=== PATIENT | male | born 1935 | race Caucasian/White ===

== ENCOUNTER 2016-03-15 18:00 | Outpatient (CLI) | payer MEDICARE ==
[~2016-03-15 18:00] MED LIST: ALBU90OI INH; ALBU90OI6 INH; ALLO300; ALLO300 PO; ALLOPURINOL 300 MG PO; AMLO5; ASPI325; ASPI325 PO; ASPI81EC PO; ATOR20; ATOR40TA; AZIT250 PO; Aspirin EC325 MG PO; BENAML10/5; BUME2 PO; CALC.25 PO; CARV3.125 PO; CARV6.25 PO; CEFU500 PO; CEPH500 PO; CHOL10002 PO; CICL.77TC TOP; CLON2; CLON2 PO; CLONAZEPAM PO; CLOP75 PO; CLOT1TL; CODGUAEL PO; Calcitriol0.25 MCG PO; Cephalexin500 MG PO; DIAZ5 PO; DIPH50; ERYT250 PO; FAMC500 PO; FAMO20; FEBU40TA PO; FOLBEE; FOLI1 PO; FOLI400 PO; FURO20; FURO40; FURO40 PO; FUROSIMIDE PO; GABA300 PO; GLIP5; GLIP5 PO; GUAI600T33 PO; GUAIFENESIN-CODE5 ML PO; HUMALOG MI SC; HUMALOG MI SQ; HYDACE5; HYDACE5 PO; HYDPAM50 PO; HYDROCODON-ACE1 EAC4 PO; Humalog100 UNIT/1; Hydrocodone-Ap1 EA23 PO; Hydromet Syrup473 ML PO; INSLIS75I SC; INSUASPI SC; ISOMON20 PO; ISOMON30 PO; ISOSORBIDE MONONITRA PO; Isosorbide Mono60 MG PO; LASIX; LEVEMIR FL100 UNIT/1 SC; LEVFLO250 PO; LIPITOR PO; LISI10 PO; LISI5 PO; LOSA25 PO; LOSA50 PO; LOTREL; METANX CAPSULE1 EACH PO; METO100; METO100ER; METO100ER PO; METO2.5; METO2.5 PO; METO50ER; METR500 PO; METTREX2.5 PO; MIR; MIRAPEX ER1.5 MG; MIRAPEX PO; MULVITB PO; Micro-K10 MEQ; Mirapex1.5 MG PO; NEBI10 PO; NITR.2TP TOP; NITR.4SL; NITR.4SL SL; NITRSPRAY SL; OXYACE5T PO; PANT40; PIOG15; POTA10T PO; POTA20PAC PO; POTA8; POTCHL20ER PO; PRAM.125 PO; PRAM.5; PRAM.5 PO; PRAMIPEXOLE 1.5 MG PO; PRED10 PO; PRED20 PO; RANI150 PO; RANO500T PO; ROSU10TA; ROSU10TA PO; ROSU5; RXCODGUASY PO; RXOXYACE PO; RXSULTRIDS PO; SAXA2.5T PO; SULTRIDS PO; TELM80; TORS10; TORSE20 PO; TORSEMIDE; TRADJENTA5 MG PO; Tamiflu75 MG PO; VALS80; VITAMIN D-32000 UNIT PO; Vitamin D2000 UNIT PO; omeprazole 20 mg cap
[2016-09-13] MEDS ORDERED: Novolog Fl100 UNIT/1 SC (10:52)
[2017-02-10] MEDS ORDERED: ZOLP12.5 PO (01:24)
[2017-02-10] MEDS ORDERED: CLOP75 PO (01:24)
[2017-02-10] MEDS ORDERED: ALLO300 PO (01:25)
[2017-02-10] MEDS ORDERED: PANT20 PO (01:26)
[2017-02-10] MEDS ORDERED: HYDR-86 PO (01:27)
[2017-02-10] MEDS ORDERED: ISOMON20 PO (01:28)
[2017-02-10] MEDS ORDERED: ABAT250V (01:31)
[2017-02-10] MEDS ORDERED: NITR.4SL SL (01:31)
[2017-02-11] MEDS ORDERED: FEBU40TA PO (10:10)
[2017-02-11] MEDS ORDERED: Ferrous Sulfat325 MG PO (10:49)
[2017-02-11] MEDS ORDERED: B-121000 MC2 PO (10:50)
[2017-03-17 10:18] LABS: Campylobacter Sp Not Detected (NOT DETECT); Plesiomonas Shigelloides Not Detected (NOT DETECT); Salmonella Sp Not Detected (NOT DETECT); Vibrio Sp Not Detected (NOT DETECT); Yersinia Enterocolitica Not Detected (NOT DETECT)
[2017-03-17 10:19] LABS: Adenovirus F 40/41 Not Detected (NOT DETECT); Astrovirus Not Detected (NOT DETECT); Cryptosporidium Not Detected (NOT DETECT); Cyclospora Cayetanensis Not Detected (NOT DETECT); E. Coli O157 Not Detected (NOT DETECT); Entamoeba Histolytica Not Detected (NOT DETECT); Enteroaggregative E. coli-EAEC Not Detected (NOT DETECT); Enteropathogenic E. coli-EPEC Not Detected (NOT DETECT); Enterotoxigenic E. coli-ETEC Not Detected (NOT DETECT); Giardia Lamblia Not Detected (NOT DETECT); Norovirus GI/GII Not Detected (NOT DETECT); Rotavirus A Not Detected (NOT DETECT); Sapovirus Not Detected (NOT DETECT); Shiga Toxin-prod E. coli-STEC Not Detected (NOT DETECT); Shigella/Enteroin E. coli-EIEC Not Detected (NOT DETECT); Vibrio Cholerae Not Detected (NOT DETECT)
[2017-08-02] MEDS ORDERED: TOUJEO SOL300 UNIT/1 SC (15:09)
[2017-08-02] MEDS ORDERED: DOC250 PO (15:20)
[2017-09-14] MEDS ORDERED: Vancocin HCl125 MG PO (03:14)
[2017-09-14] MEDS ORDERED: Roxicodone5 MG PO (03:31)
[2017-09-14] MEDS ORDERED: Zofran Odt4 MG PO (03:32)
[2017-10-01] MEDS ORDERED: ACET325 PO (17:31)
[2017-10-01] MEDS ORDERED: Novolog Fl100 UNIT/1 SC (17:32)
[2017-10-01] MEDS ORDERED: ROPI.25 PO (17:33)
[2017-10-06] MEDS ORDERED: SACC250C PO (10:39)
[2017-10-06] MEDS ORDERED: VANC250 PO (10:40)
[2017-10-31] MEDS ORDERED: LEVFLO250 PO (08:53)
[2017-10-31] MEDS ORDERED: Norco 7.5-3251 EACH PO (09:44)
[2017-10-31] MEDS ORDERED: SINEMET 25-1001 EACH PO (09:45)
[2017-12-19] MEDS ORDERED: ATOR80 PO (10:56)
[2017-12-19] MEDS ORDERED: POLY500 PO (10:57)
[2017-12-19] MEDS ORDERED: SINEMET 25-1001 EACH PO (10:57)
[2017-12-19] MEDS ORDERED: INSULANPEN SC (10:58)
[2017-12-19] MEDS ORDERED: LORA.5 PO (10:58)
[2017-12-19] MEDS ORDERED: LEVOFLOXAC250 MG/50 IV (11:01)
[2017-12-19] MEDS ORDERED: SPIR25 PO (11:04)
[2017-12-19] MEDS ORDERED: ISO GENTAM IV (11:15)
[2018-01-16] MEDS ORDERED: MIDO5 PO (13:15)
[2018-01-16] MEDS ORDERED: ZINC15 PO (13:15)
[2018-01-17] MEDS ORDERED: ALLO100 PO (10:26)
[2018-01-17] MEDS ORDERED: ROSU10TA PO (10:27)
[2018-01-17] MEDS ORDERED: PREG75 PO (10:28)
[2018-01-17] MEDS ORDERED: HYDPAM50 PO (10:28)
[2018-01-17] MEDS ORDERED: CALCA400CH PO (10:29)
[2018-01-17] MEDS ORDERED: Novolog Fl100 UNIT/1 SC (10:30)
[2018-01-17] MEDS ORDERED: ROPI.25 PO (10:30)
[2018-01-18] MEDS ORDERED: Ferrous Sulfat325 M2 PO (11:27)
== END 2017-03-15 ==
LOC: LAB EV 18:00
PROVIDERS: Physician Assistant
DX: K52.9 Noninfective gastroenteritis and colitis, unspecified (principal)
CPT/HCPCS: 87507

== ENCOUNTER 2017-07-29 10:21 | Inpatient (IN) | payer MEDICARE ==
[~2017-07-29] VITALS: Ht 172.7 cm; Wt 115.5 kg
[~2017-07-29 10:21] MED LIST changes: +ABAT250V; +B-121000 MC2 PO; +CARV25 PO; -CARV3.125 PO; -FOLI400 PO; +Ferrous Sulfat325 MG PO; +HYDR-86 PO; +Novolog Fl100 UNIT/1 SC; +PANT20 PO; +ZOLP12.5 PO
[2017-07-29 11:37] LABS: BASOPHILS ABSOLUTE AUTO 0.02 K/mm3 (0.00-0.23); BASOPHILS PERCENT AUTO 1 % (0-2); EOSINOPHILS ABSOLUTE AUTO 0.11 K/mm3 (0.00-0.68); EOSINOPHILS PERCENT AUTO 3 % (0-6); Hematocrit 31.6 % (37.0-53.0); Hemoglobin 10.4 g/dL (13.5-17.5); IMMATURE GRAN ABSOLUTE AUTO 0.04 K/mm3 (0.00-0.10); IMMATURE GRAN PERCENT AUTO 1 % (0-1); LYMPHOCYTES ABSOLUTE AUTO 0.37 K/mm3 (0.84-5.20); LYMPHOCYTES PERCENT AUTO 9 % (21-46); MONOCYTES ABSOLUTE AUTO 0.82 K/mm3 (0.16-1.47); MONOCYTES PERCENT AUTO 21 % (4-13); Mean Corpuscular HGB 29.4 pg (26.0-34.0); Mean Corpuscular HGB Conc 32.9 g/dL (31.5-36.5); Mean Corpuscular Volume 89 fL (80-100); Mean Platelet Volume 12.7 fL (9.1-12.4); NEUTROPHILS ABSOLUTE AUTO 2.57 K/mm3 (1.96-9.15); NEUTROPHILS PERCENT AUTO 65 % (41-73); Platelet Count 72 K/mm3 (150-400); RDW Coefficient Variation 15.6 % (11.7-14.2); RDW Standard Deviation 50.1 fL (35.1-46.3); Red Blood Cell Count 3.54 M/mm3 (4.30-5.90); White Blood Cell Count 3.93 K/mm3 (4.00-11.30)
[2017-07-29 11:47] LABS: Albumin, Blood 3.1 g/dL (3.4-5.0); Albumin/Globulin Ratio 0.8 (0.8-1.8); Bilirubin, Total 0.8 mg/dL (0.1-1.0); Bun/Creatinine Ratio 19.9 (12.0-20.0); Calcium, Blood 8.9 mg/dL (8.5-10.1); Creatinine, Blood 4.42 mg/dL (0.60-1.20); Globulin, Blood 4.1 g/dL (2.2-4.0); Potassium, Blood 3.4 mmol/L (3.5-5.5); Total Protein, Blood 7.2 g/dL (6.4-8.2); Troponin I 0.177 ng/mL (0.000-0.040)
[2017-07-29 14:19] LABS: International Normalized Ratio 1.32; Prothrombin Time Results 13.8 Sec (9.7-11.5)
[2017-07-29] MEDS ORDERED: Novolog Fl100 UNIT/1 INJ (18:46)
[2017-07-29] MEDS ORDERED: CYAN500 PO (18:49)
[2017-07-29] MEDS ORDERED: ASPI325 PO (18:54)
[2017-07-29] MEDS ORDERED: TOUJEO SOL300 UNIT/1 (18:55)
[2017-07-29] MEDS ORDERED: ALLO100 PO (18:57)
[2017-07-29 21:26] LABS: Source, Urine Catheter
[2017-07-29 21:35] LABS: Appearance, Urine Clear (Clear); Bilirubin, Urine Neg (Neg); Blood, Urine 5+ (Neg); Color, Urine Yellow (P-Yellow); Glucose Qualitative, Urine Neg (Neg); Ketones, Urine Neg (Neg); Leukocyte Esterase, Urine Neg (Neg); Nitrite, Urine Neg (Neg); Protein, Urine 2+ (Neg); Specific Gravity, Urine 1.005 (1.003-1.022); Urobilinogen, Urine NORM (Normal)
[2017-07-29 21:44] LABS: Bacteria Rare /hpf; Red Blood Cells, Urine 50-100 /hpf (0-2); Squamous Epithelial Cells Rare /hpf (Few); White Blood Cells, Urine 0-2 /hpf (0-5)
[2017-07-30 05:16] LABS: BASOPHILS ABSOLUTE AUTO 0.02 K/mm3 (0.00-0.23); BASOPHILS PERCENT AUTO 1 % (0-2); EOSINOPHILS PERCENT AUTO 3 % (0-6); Hematocrit 31.4 % (37.0-53.0); Hemoglobin 10.1 g/dL (13.5-17.5); IMMATURE GRAN ABSOLUTE AUTO 0.02 K/mm3 (0.00-0.10); IMMATURE GRAN PERCENT AUTO 1 % (0-1); LYMPHOCYTES ABSOLUTE AUTO 0.29 K/mm3 (0.84-5.20); LYMPHOCYTES PERCENT AUTO 9 % (21-46); MONOCYTES ABSOLUTE AUTO 0.67 K/mm3 (0.16-1.47); MONOCYTES PERCENT AUTO 20 % (4-13); Mean Corpuscular HGB 28.9 pg (26.0-34.0); Mean Corpuscular HGB Conc 32.2 g/dL (31.5-36.5); Mean Corpuscular Volume 90 fL (80-100); Mean Platelet Volume 11.8 fL (9.1-12.4); NEUTROPHILS ABSOLUTE AUTO 2.18 K/mm3 (1.96-9.15); NEUTROPHILS PERCENT AUTO 67 % (41-73); Platelet Count 76 K/mm3 (150-400); RDW Coefficient Variation 15.9 % (11.7-14.2); RDW Standard Deviation 51.5 fL (35.1-46.3); Red Blood Cell Count 3.49 M/mm3 (4.30-5.90); White Blood Cell Count 3.28 K/mm3 (4.00-11.30)
[2017-07-30 05:38] LABS: Bun/Creatinine Ratio 18.4 (12.0-20.0); Creatinine, Blood 4.4 mg/dL (0.60-1.20); Potassium, Blood 3.1 mmol/L (3.5-5.5)
[2017-07-30 05:39] LABS: Troponin I 0.222 ng/mL (0.000-0.040)
[2017-07-30 17:28] LABS: Albumin, Blood 2.7 g/dL (3.4-5.0); Anion Gap 10 mmol/L (6-16); Blood Urea Nitrogen 85 mg/dL (8-24); Bun/Creatinine Ratio 20.6 (12.0-20.0); CO2, Blood 28 mmol/L (21-32); Calcium, Blood 8.5 mg/dL (8.5-10.1); Chloride, Blood 102 mmol/L (98-108); Creatinine, Blood 4.13 mg/dL (0.60-1.20); Glomerular Filtration Rate 15 (60-); Glucose, Blood 173 mg/dL (70-99); Magnesium, Blood 2.1 mg/dL (1.6-2.4); Phosphorus, Blood 4.4 mg/dL (2.5-4.9); Potassium, Blood 3.2 mmol/L (3.5-5.5); Sodium, Blood 140 mmol/L (136-145)
[2017-07-31 05:28] LABS: BASOPHILS ABSOLUTE AUTO 0.02 K/mm3 (0.00-0.23); BASOPHILS PERCENT AUTO 1 % (0-2); EOSINOPHILS ABSOLUTE AUTO 0.12 K/mm3 (0.00-0.68); EOSINOPHILS PERCENT AUTO 3 % (0-6); Hematocrit 30.3 % (37.0-53.0); Hemoglobin 9.7 g/dL (13.5-17.5); IMMATURE GRAN ABSOLUTE AUTO 0.03 K/mm3 (0.00-0.10); IMMATURE GRAN PERCENT AUTO 1 % (0-1); LYMPHOCYTES ABSOLUTE AUTO 0.47 K/mm3 (0.84-5.20); LYMPHOCYTES PERCENT AUTO 12 % (21-46); MONOCYTES ABSOLUTE AUTO 0.99 K/mm3 (0.16-1.47); MONOCYTES PERCENT AUTO 26 % (4-13); Mean Corpuscular HGB 29.1 pg (26.0-34.0); Mean Corpuscular Volume 91 fL (80-100); Mean Platelet Volume 12.8 fL (9.1-12.4); NEUTROPHILS ABSOLUTE AUTO 2.19 K/mm3 (1.96-9.15); NEUTROPHILS PERCENT AUTO 57 % (41-73); Platelet Count 69 K/mm3 (150-400); RDW Coefficient Variation 15.9 % (11.7-14.2); RDW Standard Deviation 51.5 fL (35.1-46.3); Red Blood Cell Count 3.33 M/mm3 (4.30-5.90); White Blood Cell Count 3.82 K/mm3 (4.00-11.30)
[2017-07-31 05:49] LABS: Albumin, Blood 2.7 g/dL (3.4-5.0); Anion Gap 10 mmol/L (6-16); Blood Urea Nitrogen 84 mg/dL (8-24); Bun/Creatinine Ratio 20.6 (12.0-20.0); CO2, Blood 30 mmol/L (21-32); Calcium, Blood 8.9 mg/dL (8.5-10.1); Chloride, Blood 103 mmol/L (98-108); Creatinine, Blood 4.08 mg/dL (0.60-1.20); Glomerular Filtration Rate 15 (60-); Glucose, Blood 55 mg/dL (70-99); Magnesium, Blood 2.2 mg/dL (1.6-2.4); Phosphorus, Blood 4.2 mg/dL (2.5-4.9); Potassium, Blood 3.2 mmol/L (3.5-5.5); Sodium, Blood 143 mmol/L (136-145)
[2017-08-01 05:40] LABS: Albumin, Blood 2.7 g/dL (3.4-5.0); Anion Gap 10 mmol/L (6-16); Blood Urea Nitrogen 75 mg/dL (8-24); CO2, Blood 29 mmol/L (21-32); Calcium, Blood 9.1 mg/dL (8.5-10.1); Chloride, Blood 101 mmol/L (98-108); Creatinine, Blood 3.75 mg/dL (0.60-1.20); Glomerular Filtration Rate 17 (60-); Glucose, Blood 182 mg/dL (70-99); Phosphorus, Blood 4.1 mg/dL (2.5-4.9); Potassium, Blood 4.2 mmol/L (3.5-5.5); Sodium, Blood 140 mmol/L (136-145)
[2017-08-02 05:34] LABS: Albumin, Blood 2.7 g/dL (3.4-5.0); Anion Gap 8 mmol/L (6-16); Blood Urea Nitrogen 72 mg/dL (8-24); Bun/Creatinine Ratio 18.7 (12.0-20.0); CO2, Blood 29 mmol/L (21-32); Calcium, Blood 9.4 mg/dL (8.5-10.1); Chloride, Blood 102 mmol/L (98-108); Creatinine, Blood 3.86 mg/dL (0.60-1.20); Glomerular Filtration Rate 16 (60-); Glucose, Blood 145 mg/dL (70-99); Phosphorus, Blood 3.4 mg/dL (2.5-4.9); Potassium, Blood 4.8 mmol/L (3.5-5.5); Sodium, Blood 139 mmol/L (136-145)
[2017-08-02] MEDS ORDERED: FURO80 (14:41)
[2017-08-02] MEDS ORDERED: INSDET100 SC (15:09)
[2017-08-02] MEDS ORDERED: PRAM.5 (15:13)
[2017-08-02] MEDS ORDERED: CLOP75 PO (15:15)
[2017-08-02] MEDS ORDERED: DOCU100 (15:20)
[2017-08-02] MEDS ORDERED: SPIR25 PO (15:21)
== END 2017-08-02 16:34 | disposition home health service (06) | DRG 291 ==
LOC: ER 10:21 → MEDS 14:44 → ENPENDDIS 08-02 14:00 → MEDS 08-02 16:34
PROVIDERS: Family Medicine; Internal Medicine; Nurse Practitioner Family; Pharmacist
DX: I13.0 Hypertensive heart and chronic kidney disease with heart failure and stage 1 through stage 4 chronic kidney disease, or unspecified chronic kidney disease (principal); I50.43 Acute on chronic combined systolic (congestive) and diastolic (congestive) heart failure; N18.4 Chronic kidney disease, stage 4 (severe); E11.22 Type 2 diabetes mellitus with diabetic chronic kidney disease; E11.65 Type 2 diabetes mellitus with hyperglycemia; Z79.4 Long term (current) use of insulin; I25.5 Ischemic cardiomyopathy; I25.10 Atherosclerotic heart disease of native coronary artery without angina pectoris; E78.5 Hyperlipidemia, unspecified; E11.40 Type 2 diabetes mellitus with diabetic neuropathy, unspecified; N40.0 Benign prostatic hyperplasia without lower urinary tract symptoms; G25.81 Restless legs syndrome; G47.33 Obstructive sleep apnea (adult) (pediatric); E87.6 Hypokalemia; R60.1 Generalized edema
CPT/HCPCS: 36415; 51702; 71046; 80048; 80053; 80069; 81001; 82947; 83735; 83880; 84443; 84484; 85025; 85610; 85730; 93005; 93010; 93306; 94660; 94762; 96365; 96366; 96375; 97116; 97161; 97165; 97530; 99285; C9113; G8978; G8979; G8987; G8988; J1644; J1650; J1815; J1940; J2916

== ENCOUNTER 2017-08-23 12:34 | Emergency (ER) | payer MEDICARE ==
[~2017-08-23] VITALS: Ht 172.7 cm; Wt 112.0 kg
[~2017-08-23 12:34] MED LIST changes: +ALLO100 PO; +CYAN500 PO; +DOC250 PO; +FOLI400 PO; +FURO80; +Novolog Fl100 UNIT/1 INJ; +SPIR25 PO; +TOUJEO SOL300 UNIT/1; +TOUJEO SOL300 UNIT/1 SC
[2017-08-23 13:22] LABS: BASOPHILS ABSOLUTE AUTO 0.02 K/mm3 (0.00-0.23); BASOPHILS PERCENT AUTO 1 % (0-2); EOSINOPHILS ABSOLUTE AUTO 0.07 K/mm3 (0.00-0.68); EOSINOPHILS PERCENT AUTO 2 % (0-6); Hematocrit 29.1 % (37.0-53.0); Hemoglobin 9.6 g/dL (13.5-17.5); IMMATURE GRAN ABSOLUTE AUTO 0.02 K/mm3 (0.00-0.10); IMMATURE GRAN PERCENT AUTO 1 % (0-1); LYMPHOCYTES ABSOLUTE AUTO 0.36 K/mm3 (0.84-5.20); LYMPHOCYTES PERCENT AUTO 12 % (21-46); MONOCYTES ABSOLUTE AUTO 0.59 K/mm3 (0.16-1.47); MONOCYTES PERCENT AUTO 20 % (4-13); Mean Corpuscular HGB 30.4 pg (26.0-34.0); Mean Corpuscular Volume 92 fL (80-100); Mean Platelet Volume 12.8 fL (9.1-12.4); NEUTROPHILS ABSOLUTE AUTO 1.86 K/mm3 (1.96-9.15); NEUTROPHILS PERCENT AUTO 64 % (41-73); Platelet Count 58 K/mm3 (150-400); RDW Coefficient Variation 17.4 % (11.7-14.2); RDW Standard Deviation 58.4 fL (35.1-46.3); Red Blood Cell Count 3.16 M/mm3 (4.30-5.90); White Blood Cell Count 2.92 K/mm3 (4.00-11.30)
[2017-08-23 13:34] LABS: Albumin, Blood 3.1 g/dL (3.4-5.0); Albumin/Globulin Ratio 0.8 (0.8-1.8); Bun/Creatinine Ratio 17.8 (12.0-20.0); Calcium, Blood 8.2 mg/dL (8.5-10.1); Creatinine, Blood 3.32 mg/dL (0.60-1.20); Magnesium, Blood 2.8 mg/dL (1.6-2.4); Potassium, Blood 4.8 mmol/L (3.5-5.5); Total Protein, Blood 7.1 g/dL (6.4-8.2); Troponin I 0.1 ng/mL (0.000-0.040)
[2017-08-23] MEDS ORDERED: Novolog Fl100 UNIT/1 SC (13:34)
[2017-08-23] MEDS ORDERED: BUME2 PO (13:36)
[2017-08-23] MEDS ORDERED: LORA.5 PO (13:39)
[2017-08-23] MEDS ORDERED: METO2.5 PO (14:23)
[2017-08-23] MEDS ORDERED: GABA300 PO (14:24)
[2017-08-23] MEDS ORDERED: TRAZ50 PO (14:24)
[2017-08-23] MEDS ORDERED: ZOLP5 PO (14:25)
[2017-08-23] MEDS ORDERED: NEUPRO1 EACH TOP (14:35)
[2017-08-23] MEDS ORDERED: Neurontin 300300 MG PO (16:13)
[2017-08-23] MEDS ORDERED: ROPI.25 PO (16:13)
== END 2017-08-23 16:50 | disposition home or self-care (01) ==
LOC: ER 12:34
PROVIDERS: Emergency Medicine
DX: G25.81 Restless legs syndrome (principal); R79.89 Other specified abnormal findings of blood chemistry; E11.9 Type 2 diabetes mellitus without complications; I10 Essential (primary) hypertension; Z88.6 Allergy status to analgesic agent; Z88.0 Allergy status to penicillin; Z79.899 Other long term (current) drug therapy; Z79.4 Long term (current) use of insulin; Z79.82 Long term (current) use of aspirin; Z87.891 Personal history of nicotine dependence
CPT/HCPCS: 71046; 80053; 83735; 83880; 84484; 85025; 93005; 93010; 96374; 99284; J2060

== ENCOUNTER 2017-08-27 17:58 | Emergency (ER) | payer MEDICARE ==
[~2017-08-27] VITALS: Ht 172.7 cm; Wt 121.6 kg
[~2017-08-27 17:58] MED LIST changes: +LORA.5 PO; +NEUPRO1 EACH TOP; +Neurontin 300300 MG PO; +ROPI.25 PO; +TRAZ50 PO; +ZOLP5 PO
== END 2017-08-27 20:13 | disposition home or self-care (01) ==
LOC: ER 17:58
DX: I87.2 Venous insufficiency (chronic) (peripheral) (principal); E11.9 Type 2 diabetes mellitus without complications; I10 Essential (primary) hypertension; Z88.6 Allergy status to analgesic agent; Z88.0 Allergy status to penicillin; Z79.4 Long term (current) use of insulin; Z79.899 Other long term (current) drug therapy; Z79.82 Long term (current) use of aspirin; Z87.891 Personal history of nicotine dependence
CPT/HCPCS: 93971; 99284

== ENCOUNTER → 2017-10-26 | Outpatient (CLI) | payer MEDICARE ==
[~2017-10-26] MED LIST changes: +ACET325 PO; +Norco 7.5-3251 EACH PO; +Roxicodone5 MG PO; +SACC250C PO; +SINEMET 25-1001 EACH PO; +VANC250 PO; +Vancocin HCl125 MG PO; +Zofran Odt4 MG PO
[2017-10-26 12:08] LABS: BASOPHILS ABSOLUTE AUTO 0.01 K/mm3 (0.00-0.23); BASOPHILS PERCENT AUTO 1 % (0-2); EOSINOPHILS ABSOLUTE AUTO 0.08 K/mm3 (0.00-0.68); EOSINOPHILS PERCENT AUTO 4 % (0-6); Hematocrit 26.9 % (37.0-53.0); Hemoglobin 8.8 g/dL (13.5-17.5); IMMATURE GRAN ABSOLUTE AUTO 0.01 K/mm3 (0.00-0.10); IMMATURE GRAN PERCENT AUTO 1 % (0-1); LYMPHOCYTES ABSOLUTE AUTO 0.44 K/mm3 (0.84-5.20); LYMPHOCYTES PERCENT AUTO 22 % (21-46); MONOCYTES ABSOLUTE AUTO 0.63 K/mm3 (0.16-1.47); MONOCYTES PERCENT AUTO 31 % (4-13); Mean Corpuscular HGB 31.8 pg (26.0-34.0); Mean Corpuscular HGB Conc 32.7 g/dL (31.5-36.5); Mean Corpuscular Volume 97 fL (80-100); Mean Platelet Volume 12.4 fL (9.1-12.4); NEUTROPHILS ABSOLUTE AUTO 0.85 K/mm3 (1.96-9.15); NEUTROPHILS PERCENT AUTO 42 % (41-73); RDW Coefficient Variation 16.2 % (11.7-14.2); RDW Standard Deviation 57.7 fL (35.1-46.3); Red Blood Cell Count 2.77 M/mm3 (4.30-5.90); White Blood Cell Count 2.02 K/mm3 (4.00-11.30)
[2017-10-26 12:25] LABS: Platelet Count 41 K/mm3 (150-400)
[2017-10-26 13:20] LABS: Anion Gap 6 mmol/L (6-16); Blood Urea Nitrogen 13 mg/dL (8-24); CO2, Blood 36 mmol/L (21-32); Calcium, Blood 5.8 mg/dL (8.5-10.1); Chloride, Blood 100 mmol/L (98-108); Creatinine, Blood 0.93 mg/dL (0.60-1.20); Glomerular Filtration Rate >60 (60-); Glucose, Blood 135 mg/dL (70-99); Potassium, Blood 3.2 mmol/L (3.5-5.5); Sodium, Blood 142 mmol/L (136-145)
== END ==
LOC: LAB 11:59 → LAB SHORT 11:59
PROVIDERS: Internal Medicine
DX: N18.6 End stage renal disease (principal)
CPT/HCPCS: 80048; 85025

== ENCOUNTER 2017-10-27 08:49 | Inpatient (IN) | payer MEDICARE ==
[~2017-10-27] VITALS: Ht 172.7 cm; Wt 90.8 kg
[~2017-10-27 08:49] MED LIST changes: -Norco 7.5-3251 EACH PO; -SINEMET 25-1001 EACH PO
[2017-10-27 10:25] LABS: BASOPHILS ABSOLUTE AUTO 0.02 K/mm3 (0.00-0.23); BASOPHILS PERCENT AUTO 1 % (0-2); EOSINOPHILS ABSOLUTE AUTO 0.14 K/mm3 (0.00-0.68); EOSINOPHILS PERCENT AUTO 6 % (0-6); Hematocrit 30.4 % (37.0-53.0); Hemoglobin 9.9 g/dL (13.5-17.5); IMMATURE GRAN ABSOLUTE AUTO 0.02 K/mm3 (0.00-0.10); IMMATURE GRAN PERCENT AUTO 1 % (0-1); LYMPHOCYTES ABSOLUTE AUTO 0.48 K/mm3 (0.84-5.20); LYMPHOCYTES PERCENT AUTO 20 % (21-46); MONOCYTES PERCENT AUTO 29 % (4-13); Mean Corpuscular HGB 31.7 pg (26.0-34.0); Mean Corpuscular HGB Conc 32.6 g/dL (31.5-36.5); Mean Corpuscular Volume 97 fL (80-100); Mean Platelet Volume 11.9 fL (9.1-12.4); NEUTROPHILS ABSOLUTE AUTO 1.05 K/mm3 (1.96-9.15); NEUTROPHILS PERCENT AUTO 44 % (41-73); RDW Coefficient Variation 16.2 % (11.7-14.2); Red Blood Cell Count 3.12 M/mm3 (4.30-5.90); White Blood Cell Count 2.41 K/mm3 (4.00-11.30)
[2017-10-27 10:31] LABS: Platelet Count 45 K/mm3 (150-400)
[2017-10-27 10:53] LABS: Albumin, Blood 2.8 g/dL (3.4-5.0); Albumin/Globulin Ratio 0.7 (0.8-1.8); Bun/Creatinine Ratio 12.2 (12.0-20.0); Creatinine, Blood 3.29 mg/dL (0.60-1.20); Magnesium, Blood 3.2 mg/dL (1.6-2.4); Potassium, Blood 4.1 mmol/L (3.5-5.5); Total Protein, Blood 6.8 g/dL (6.4-8.2); Troponin I 0.029 ng/mL (0.000-0.040)
[2017-10-27 10:54] LABS: Calcium, Blood 8.5 mg/dL (8.5-10.1)
[2017-10-27 10:57] LABS: Thyroid Stimulating Hormone 1.56 uIU/mL (0.360-4.800)
[2017-10-27 17:26] LABS: Percent Saturation 22.1 % (20.0-50.0)
[2017-10-27 17:44] LABS: Free Thyroxine 1.28 ng/dL (0.70-1.60); Prolactin 24.7 ng/mL (2.5-17.4)
[2017-10-28 03:52] LABS: BASOPHILS ABSOLUTE AUTO 0.01 K/mm3 (0.00-0.23); BASOPHILS PERCENT AUTO 0 % (0-2); EOSINOPHILS ABSOLUTE AUTO 0.17 K/mm3 (0.00-0.68); EOSINOPHILS PERCENT AUTO 6 % (0-6); Hematocrit 31.4 % (37.0-53.0); Hemoglobin 10.1 g/dL (13.5-17.5); IMMATURE GRAN ABSOLUTE AUTO 0.01 K/mm3 (0.00-0.10); IMMATURE GRAN PERCENT AUTO 0 % (0-1); LYMPHOCYTES ABSOLUTE AUTO 0.45 K/mm3 (0.84-5.20); LYMPHOCYTES PERCENT AUTO 17 % (21-46); MONOCYTES ABSOLUTE AUTO 0.73 K/mm3 (0.16-1.47); MONOCYTES PERCENT AUTO 27 % (4-13); Mean Corpuscular HGB 31.9 pg (26.0-34.0); Mean Corpuscular HGB Conc 32.2 g/dL (31.5-36.5); Mean Corpuscular Volume 99 fL (80-100); NEUTROPHILS ABSOLUTE AUTO 1.33 K/mm3 (1.96-9.15); NEUTROPHILS PERCENT AUTO 49 % (41-73); RDW Coefficient Variation 16.2 % (11.7-14.2); RDW Standard Deviation 58.4 fL (35.1-46.3); Red Blood Cell Count 3.17 M/mm3 (4.30-5.90)
[2017-10-28 03:57] LABS: Platelet Count 37 K/mm3 (150-400)
[2017-10-28 04:14] LABS: Albumin, Blood 2.7 g/dL (3.4-5.0); Anion Gap 7 mmol/L (6-16); Blood Urea Nitrogen 44 mg/dL (8-24); Bun/Creatinine Ratio 12.5 (12.0-20.0); CO2, Blood 32 mmol/L (21-32); Calcium, Blood 8.4 mg/dL (8.5-10.1); Chloride, Blood 97 mmol/L (98-108); Creatinine, Blood 3.51 mg/dL (0.60-1.20); Glomerular Filtration Rate 18 (60-); Glucose, Blood 89 mg/dL (70-99); Phosphorus, Blood 5.2 mg/dL (2.5-4.9); Potassium, Blood 3.9 mmol/L (3.5-5.5); Sodium, Blood 136 mmol/L (136-145)
[2017-10-28 04:17] LABS: Triiodothyronine, Free 2.16 pg/mL (2.18-3.98)
[2017-10-28 06:36] LABS: Base Excess Venous 9.3 mmol/L; Bicarbonate Venous 31.7 mmol/L (24.0-30.0); PCO2 Venous 47.8 mmHg (38-42); PO2 Venous 47.2 mmHg (38-42); pH Blood Venous 7.45 (7.34-7.37)
[2017-10-30 05:08] LABS: BASOPHILS ABSOLUTE AUTO 0.01 K/mm3 (0.00-0.23); BASOPHILS PERCENT AUTO 0 % (0-2); EOSINOPHILS ABSOLUTE AUTO 0.15 K/mm3 (0.00-0.68); EOSINOPHILS PERCENT AUTO 4 % (0-6); Hematocrit 31.4 % (37.0-53.0); Hemoglobin 10.2 g/dL (13.5-17.5); IMMATURE GRAN ABSOLUTE AUTO 0.01 K/mm3 (0.00-0.10); IMMATURE GRAN PERCENT AUTO 0 % (0-1); LYMPHOCYTES ABSOLUTE AUTO 0.44 K/mm3 (0.84-5.20); LYMPHOCYTES PERCENT AUTO 13 % (21-46); MONOCYTES ABSOLUTE AUTO 1.06 K/mm3 (0.16-1.47); MONOCYTES PERCENT AUTO 31 % (4-13); Mean Corpuscular HGB 32.1 pg (26.0-34.0); Mean Corpuscular HGB Conc 32.5 g/dL (31.5-36.5); Mean Corpuscular Volume 99 fL (80-100); Mean Platelet Volume 12.2 fL (9.1-12.4); NEUTROPHILS ABSOLUTE AUTO 1.78 K/mm3 (1.96-9.15); NEUTROPHILS PERCENT AUTO 52 % (41-73); Platelet Count 60 K/mm3 (150-400); RDW Coefficient Variation 16.7 % (11.7-14.2); RDW Standard Deviation 60.2 fL (35.1-46.3); Red Blood Cell Count 3.18 M/mm3 (4.30-5.90); White Blood Cell Count 3.45 K/mm3 (4.00-11.30)
[2017-10-30 10:38] LABS: Hematocrit 29.5 % (37.0-53.0); Hemoglobin 9.7 g/dL (13.5-17.5); Mean Corpuscular HGB 32.1 pg (26.0-34.0); Mean Corpuscular HGB Conc 32.9 g/dL (31.5-36.5); Mean Corpuscular Volume 98 fL (80-100); Mean Platelet Volume 12.3 fL (9.1-12.4); Platelet Count 53 K/mm3 (150-400); RDW Coefficient Variation 16.7 % (11.7-14.2); RDW Standard Deviation 59.3 fL (35.1-46.3); Red Blood Cell Count 3.02 M/mm3 (4.30-5.90); White Blood Cell Count 3.46 K/mm3 (4.00-11.30)
[2017-10-30 10:48] LABS: Albumin, Blood 2.5 g/dL (3.4-5.0); Anion Gap 10 mmol/L (6-16); Blood Urea Nitrogen 42 mg/dL (8-24); Bun/Creatinine Ratio 11.7 (12.0-20.0); CO2, Blood 29 mmol/L (21-32); Chloride, Blood 96 mmol/L (98-108); Creatinine, Blood 3.59 mg/dL (0.60-1.20); Glomerular Filtration Rate 17 (60-); Glucose, Blood 170 mg/dL (70-99); Phosphorus, Blood 4.3 mg/dL (2.5-4.9); Potassium, Blood 3.6 mmol/L (3.5-5.5); Sodium, Blood 135 mmol/L (136-145)
[2017-10-30 11:11] LABS: BASOPHILS ABSOLUTE MAN 0.03 K/mm3 (0.00-0.23); BASOPHILS PERCENT MAN 1 % (0-2); EOSINOPHILS ABSOLUTE MAN 0.13 K/mm3 (0.00-0.68); EOSINOPHILS PERCENT MAN 4 % (0-6); LYMPHOCYTES ABSOLUTE MAN 0.38 K/mm3 (0.84-5.20); LYMPHOCYTES PERCENT MAN 11 % (21-46); MONOCYTES ABSOLUTE MAN 0.34 K/mm3 (0.16-1.47); MONOCYTES PERCENT MAN 10 % (4-13); NEUTROPHILS ABSOLUTE MAN 2.56 K/mm3 (1.96-9.15); SEG NEUTROPHILS PERCENT MAN 74 % (41-73); TOTAL CELLS COUNTED 100
[2017-10-31] MEDS ORDERED: LEVFLO250 PO ×2 (08:53)
[2017-10-31] MEDS ORDERED: Norco 7.5-3251 EACH PO ×2 (09:44)
[2017-10-31] MEDS ORDERED: SINEMET 25-1001 EACH PO ×2 (09:45)
== END 2017-10-31 10:41 | disposition home or self-care (01) | DRG 255 ==
LOC: ER 08:49 → SURS 11:09
PROVIDERS: Emergency Medicine; Hospitalist; Internal Medicine
PROC: 0Y6R0Z0 Detachment at Right 2nd Toe, Complete, Open Approach (ICD-10-PCS; principal; 2017-10-29)
DX: E11.52 Type 2 diabetes mellitus with diabetic peripheral angiopathy with gangrene (principal); N18.6 End stage renal disease; A04.72 Enterocolitis due to Clostridium difficile, not specified as recurrent; I96 Gangrene, not elsewhere classified; I13.2 Hypertensive heart and chronic kidney disease with heart failure and with stage 5 chronic kidney disease, or end stage renal disease; I50.42 Chronic combined systolic (congestive) and diastolic (congestive) heart failure; I25.10 Atherosclerotic heart disease of native coronary artery without angina pectoris; I25.5 Ischemic cardiomyopathy; E78.5 Hyperlipidemia, unspecified; G47.33 Obstructive sleep apnea (adult) (pediatric); Z99.2 Dependence on renal dialysis; K74.60 Unspecified cirrhosis of liver; D63.1 Anemia in chronic kidney disease; E11.22 Type 2 diabetes mellitus with diabetic chronic kidney disease; Z95.5 Presence of coronary angioplasty implant and graft; Z87.891 Personal history of nicotine dependence; Z86.69 Personal history of other diseases of the nervous system and sense organs; Z79.4 Long term (current) use of insulin; R09.02 Hypoxemia; D69.6 Thrombocytopenia, unspecified; E88.81 Metabolic syndrome and other insulin resistance
CPT/HCPCS: 36415; 71046; 80048; 80053; 80069; 82728; 82803; 82947; 83036; 83540; 83550; 83735; 83880; 84146; 84439; 84443; 84481; 84484; 85025; 86850; 86900; 86901; 87071; 87075; 87077; 87186; 87205; 93005; 93010; 94640; 94660; 94762; 96365; 96375; 96376; 97110; 97116; 97162; 97530; 99285-25; G8978; G8979; J0692; J0881; J2001; J2060; J2250; J2405; J3010; J7030

== ENCOUNTER 2017-11-19 12:48 | Emergency (ER) | payer MEDICARE ==
[~2017-11-19] VITALS: Ht 172.7 cm; Wt 115.7 kg
[~2017-11-19 12:48] MED LIST changes: +Norco 7.5-3251 EACH PO; +SINEMET 25-1001 EACH PO
== END 2017-11-19 15:15 | disposition left against medical advice (07) ==
LOC: ER 12:48
DX: Z53.21 Procedure and treatment not carried out due to patient leaving prior to being seen by health care provider (principal)

== ENCOUNTER 2017-11-23 11:17 | Inpatient (IN) | payer MEDICARE ==
[~2017-11-23] VITALS: Ht 172.7 cm; Wt 113.8 kg
[~2017-11-23 11:17] MED LIST changes: -CARV25 PO; +CARV3.125 PO
[2017-11-23 12:14] LABS: BASOPHILS ABSOLUTE AUTO 0.01 K/mm3 (0.00-0.23); BASOPHILS PERCENT AUTO 0 % (0-2); EOSINOPHILS ABSOLUTE AUTO 0.07 K/mm3 (0.00-0.68); EOSINOPHILS PERCENT AUTO 3 % (0-6); Hematocrit 34.2 % (37.0-53.0); Hemoglobin 11.2 g/dL (13.5-17.5); IMMATURE GRAN ABSOLUTE AUTO 0.01 K/mm3 (0.00-0.10); IMMATURE GRAN PERCENT AUTO 0 % (0-1); LYMPHOCYTES ABSOLUTE AUTO 0.37 K/mm3 (0.84-5.20); LYMPHOCYTES PERCENT AUTO 13 % (21-46); MONOCYTES ABSOLUTE AUTO 0.67 K/mm3 (0.16-1.47); MONOCYTES PERCENT AUTO 24 % (4-13); Mean Corpuscular HGB 31.7 pg (26.0-34.0); Mean Corpuscular HGB Conc 32.7 g/dL (31.5-36.5); Mean Corpuscular Volume 97 fL (80-100); Mean Platelet Volume 12.8 fL (9.1-12.4); NEUTROPHILS ABSOLUTE AUTO 1.65 K/mm3 (1.96-9.15); NEUTROPHILS PERCENT AUTO 59 % (41-73); Platelet Count 54 K/mm3 (150-400); RDW Coefficient Variation 15.9 % (11.7-14.2); RDW Standard Deviation 56.1 fL (35.1-46.3); Red Blood Cell Count 3.53 M/mm3 (4.30-5.90); White Blood Cell Count 2.78 K/mm3 (4.00-11.30)
[2017-11-23 12:28] LABS: Albumin, Blood 2.6 g/dL (3.4-5.0); Albumin/Globulin Ratio 0.7 (0.8-1.8); Bilirubin, Total 1.1 mg/dL (0.1-1.0); Bun/Creatinine Ratio 7.3 (12.0-20.0); Calcium, Blood 8.3 mg/dL (8.5-10.1); Creatinine, Blood 3.13 mg/dL (0.60-1.20); Globulin, Blood 3.8 g/dL (2.2-4.0); Magnesium, Blood 2.2 mg/dL (1.6-2.4); Phosphorus, Blood 3.3 mg/dL (2.5-4.9); Potassium, Blood 3.4 mmol/L (3.5-5.5); Total Protein, Blood 6.4 g/dL (6.4-8.2)
[2017-11-23 12:39] LABS: Source, Urine Clean Catch
[2017-11-23 12:43] LABS: Appearance, Urine Clear (Clear); Bilirubin, Urine Neg (Neg); Blood, Urine 2+ (Neg); Color, Urine Yellow (P-Yellow); Glucose Qualitative, Urine Neg (Neg); Ketones, Urine 1+ (Neg); Leukocyte Esterase, Urine 1+ (Neg); Nitrite, Urine Neg (Neg); Protein, Urine 3+ (Neg); Urobilinogen, Urine NORM (Normal)
[2017-11-23] MEDS ORDERED: Vancocin HCl250 MG PO (12:57)
[2017-11-23] MEDS ORDERED: VANC125 PO (13:00)
[2017-11-23 13:08] LABS: Squamous Epithelial Cells Few /hpf (Few)
[2017-11-23 13:09] LABS: White Blood Cells, Urine 25-50 /hpf (0-5)
[2017-11-23 13:10] LABS: Bacteria Few /hpf; Renal Epithelial Rare /hpf (0-Rare)
[2017-11-23 18:03] LABS: Adenovirus F 40/41 Not Detected (NOT DETECT); Astrovirus Not Detected (NOT DETECT); Campylobacter Sp Not Detected (NOT DETECT); Cryptosporidium Not Detected (NOT DETECT); Cyclospora Cayetanensis Not Detected (NOT DETECT); E. Coli O157 Not Detected (NOT DETECT); Entamoeba Histolytica Not Detected (NOT DETECT); Enteroaggregative E. coli-EAEC Not Detected (NOT DETECT); Enteropathogenic E. coli-EPEC Not Detected (NOT DETECT); Enterotoxigenic E. coli-ETEC Not Detected (NOT DETECT); Giardia Lamblia Not Detected (NOT DETECT); Norovirus GI/GII Not Detected (NOT DETECT); Plesiomonas Shigelloides Not Detected (NOT DETECT); Rotavirus A Not Detected (NOT DETECT); Salmonella Sp Not Detected (NOT DETECT); Sapovirus Not Detected (NOT DETECT); Shiga Toxin-prod E. coli-STEC Not Detected (NOT DETECT); Shigella/Enteroin E. coli-EIEC Not Detected (NOT DETECT); Vibrio Cholerae Not Detected (NOT DETECT); Vibrio Sp Not Detected (NOT DETECT); Yersinia Enterocolitica Not Detected (NOT DETECT)
[2017-11-24 04:59] LABS: BASOPHILS ABSOLUTE AUTO 0.01 K/mm3 (0.00-0.23); BASOPHILS PERCENT AUTO 0 % (0-2); EOSINOPHILS ABSOLUTE AUTO 0.07 K/mm3 (0.00-0.68); EOSINOPHILS PERCENT AUTO 3 % (0-6); Hematocrit 32.8 % (37.0-53.0); Hemoglobin 10.5 g/dL (13.5-17.5); IMMATURE GRAN ABSOLUTE AUTO 0.01 K/mm3 (0.00-0.10); IMMATURE GRAN PERCENT AUTO 0 % (0-1); LYMPHOCYTES ABSOLUTE AUTO 0.45 K/mm3 (0.84-5.20); LYMPHOCYTES PERCENT AUTO 19 % (21-46); MONOCYTES ABSOLUTE AUTO 0.61 K/mm3 (0.16-1.47); MONOCYTES PERCENT AUTO 25 % (4-13); Mean Corpuscular HGB 31.8 pg (26.0-34.0); Mean Corpuscular Volume 99 fL (80-100); Mean Platelet Volume 11.8 fL (9.1-12.4); NEUTROPHILS ABSOLUTE AUTO 1.27 K/mm3 (1.96-9.15); NEUTROPHILS PERCENT AUTO 53 % (41-73); RDW Coefficient Variation 15.7 % (11.7-14.2); RDW Standard Deviation 57.4 fL (35.1-46.3); White Blood Cell Count 2.42 K/mm3 (4.00-11.30)
[2017-11-24 05:19] LABS: Platelet Count 47 K/mm3 (150-400)
[2017-11-24 05:21] LABS: Bun/Creatinine Ratio 6.9 (12.0-20.0); Calcium, Blood 8.1 mg/dL (8.5-10.1); Creatinine, Blood 3.46 mg/dL (0.60-1.20); Potassium, Blood 3.3 mmol/L (3.5-5.5)
[2017-11-25 08:52] LABS: Albumin, Blood 2.6 g/dL (3.4-5.0); Anion Gap 9 mmol/L (6-16); Blood Urea Nitrogen 25 mg/dL (8-24); Bun/Creatinine Ratio 7.3 (12.0-20.0); CO2, Blood 29 mmol/L (21-32); Calcium, Blood 8.1 mg/dL (8.5-10.1); Chloride, Blood 99 mmol/L (98-108); Creatinine, Blood 3.42 mg/dL (0.60-1.20); Glomerular Filtration Rate 18 (60-); Glucose, Blood 119 mg/dL (70-99); Phosphorus, Blood 3.7 mg/dL (2.5-4.9); Potassium, Blood 3.2 mmol/L (3.5-5.5); Sodium, Blood 137 mmol/L (136-145)
[2017-11-25] MEDS ORDERED: POLY500 PO (13:40)
[2017-11-25] MEDS ORDERED: VANCOMYCIN PO (13:42)
== END 2017-11-25 14:42 | disposition home or self-care (01) | DRG 371 ==
LOC: ER 11:17 → MEDS 15:29 → ENPENDDIS 11-25 07:11 → EDPENDDIS 11-25 07:11 → MEDS 11-25 14:42
PROVIDERS: Hospitalist; Internal Medicine; Physician Assistant
PROC: 5A1D70Z Performance of Urinary Filtration, Intermittent, Less than 6 Hours Per Day (ICD-10-PCS; principal; 2017-11-25)
DX: A04.71 Enterocolitis due to Clostridium difficile, recurrent (principal); N18.6 End stage renal disease; I12.0 Hypertensive chronic kidney disease with stage 5 chronic kidney disease or end stage renal disease; I96 Gangrene, not elsewhere classified; Z99.2 Dependence on renal dialysis; G25.81 Restless legs syndrome; M10.9 Gout, unspecified; E11.22 Type 2 diabetes mellitus with diabetic chronic kidney disease; E11.40 Type 2 diabetes mellitus with diabetic neuropathy, unspecified; E78.5 Hyperlipidemia, unspecified; I25.5 Ischemic cardiomyopathy; E11.51 Type 2 diabetes mellitus with diabetic peripheral angiopathy without gangrene; I25.10 Atherosclerotic heart disease of native coronary artery without angina pectoris; G47.33 Obstructive sleep apnea (adult) (pediatric); K74.60 Unspecified cirrhosis of liver; D69.6 Thrombocytopenia, unspecified; E87.6 Hypokalemia; E66.9 Obesity, unspecified; Z95.1 Presence of aortocoronary bypass graft; Z95.5 Presence of coronary angioplasty implant and graft; Z88.6 Allergy status to analgesic agent; Z88.0 Allergy status to penicillin; Z79.82 Long term (current) use of aspirin; Z79.4 Long term (current) use of insulin; Z79.899 Other long term (current) drug therapy; Z89.421 Acquired absence of other right toe(s); Z87.891 Personal history of nicotine dependence; Z68.30 Body mass index [BMI] 30.0-30.9, adult
CPT/HCPCS: 36415; 80048; 80053; 80069; 81001; 82565; 82575; 82947; 83690; 83735; 84100; 85025; 87086; 87507; 93005; 93010; 94762; J1650; J2405; J7030; J7040

== ENCOUNTER 2017-12-27 00:09 | Day surgery (SDC) | payer MEDICARE ==
[~2017-12-27 00:09] MED LIST changes: +ATOR80 PO; +INSULANPEN SC; +ISO GENTAM IV; +LEVOFLOXAC250 MG/50 IV; +POLY500 PO; +VANC125 PO; +VANCOMYCIN PO; +Vancocin HCl250 MG PO
== END 2017-12-27 22:38 | disposition home health service (06) ==
LOC: WOUND 00:09
DX: E11.621 Type 2 diabetes mellitus with foot ulcer (principal); L97.512 Non-pressure chronic ulcer of other part of right foot with fat layer exposed; E11.42 Type 2 diabetes mellitus with diabetic polyneuropathy; E11.59 Type 2 diabetes mellitus with other circulatory complications; E11.22 Type 2 diabetes mellitus with diabetic chronic kidney disease; I12.0 Hypertensive chronic kidney disease with stage 5 chronic kidney disease or end stage renal disease; N18.5 Chronic kidney disease, stage 5; I70.209 Unspecified atherosclerosis of native arteries of extremities, unspecified extremity; D50.9 Iron deficiency anemia, unspecified; Z89.421 Acquired absence of other right toe(s)

== ENCOUNTER 2017-12-29 00:08 | Day surgery (SDC) | payer MEDICARE | END 2017-12-29 22:38 | disposition home or self-care (01) | LOC: WOUND 00:08 | DX: E11.621 Type 2 diabetes mellitus with foot ulcer (principal); L97.512 Non-pressure chronic ulcer of other part of right foot with fat layer exposed; E11.42 Type 2 diabetes mellitus with diabetic polyneuropathy; E11.59 Type 2 diabetes mellitus with other circulatory complications; I70.209 Unspecified atherosclerosis of native arteries of extremities, unspecified extremity; E11.22 Type 2 diabetes mellitus with diabetic chronic kidney disease; I12.0 Hypertensive chronic kidney disease with stage 5 chronic kidney disease or end stage renal disease; N18.5 Chronic kidney disease, stage 5; D50.9 Iron deficiency anemia, unspecified ==

== ENCOUNTER 2018-01-03 00:15 | Day surgery (SDC) | payer MEDICARE | END 2018-01-03 23:01 | disposition home health service (06) | LOC: WOUND 00:15 | DX: E11.621 Type 2 diabetes mellitus with foot ulcer (principal); L97.512 Non-pressure chronic ulcer of other part of right foot with fat layer exposed; Z89.421 Acquired absence of other right toe(s); E11.42 Type 2 diabetes mellitus with diabetic polyneuropathy; E11.59 Type 2 diabetes mellitus with other circulatory complications; I70.209 Unspecified atherosclerosis of native arteries of extremities, unspecified extremity; E11.22 Type 2 diabetes mellitus with diabetic chronic kidney disease; I12.0 Hypertensive chronic kidney disease with stage 5 chronic kidney disease or end stage renal disease; N18.5 Chronic kidney disease, stage 5; D50.9 Iron deficiency anemia, unspecified ==